=== PATIENT | male | born 1950 | race Caucasian/White ===

== ENCOUNTER → 2019-02-28 | Outpatient (CLI) | payer OTHER, BC ==
--- NOTE | 2019-02-28 16:42 | RAD ---
Left lower extremity venous Doppler ultrasound History: Left leg pain and edema. Comparison: None. Procedure: Color flow Doppler, Doppler spectral analysis, and 2D images are obtained with and without compression in the area of the common femoral vein, superficial femoral vein - femoral vein junction, main femoral vein (superficial femoral vein) and popliteal vein. Veins of the proximal calf are also imaged. Findings: There is normal color flow, augmentation, and compressibility of all visualized left vein segments. No evidence of deep venous thrombus is present. Right common femoral vein is also noted to be patent. IMPRESSION: No evidence of left lower extremity deep venous thrombosis. Electronically signed by: Sebastian Charles MD (02/28/2019 4:39 PM) [id number]
== END | disposition home or self-care (01) ==
LOC: US 15:27
PROVIDERS: ATTEND Physician Assistant
DX: M79.662 Pain in left lower leg (principal); R60.0 Localized edema
CPT/HCPCS: 93971

== ENCOUNTER → 2019-03-21 | Outpatient (CLI) | payer OTHER, BC ==
--- NOTE | 2019-03-21 11:19 | RAD ---
CT of the lumbar spine without comparison for low back pain radiating down the left leg, low back and left hip pain. TECHNIQUE: Contiguous helical 3 mm axial images are obtained through the lumbar spine. Sagittal and coronal reformations are evaluated. No IV contrast was administered. FINDINGS: There is moderate multifocal aortoiliac atherosclerosis. There are paired right renal arteries, there is a single left renal artery. These appear to be patent. Mesenteric vasculature appears to be patent as well. There is straightening of the normal lumbar lordosis. No fracture or acute osseous or alignment abnormalities identified. No bony central canal stenosis is seen at any level. Intervertebral disc spaces appear well maintained at all levels. Small anterior and marginal osteophytes are seen at several levels. At T12-L1, there is no central canal stenosis or neural foraminal narrowing. Moderate facet arthrosis. At L1-2, there is no central canal stenosis or neuroforaminal narrowing. There is moderate facet arthrosis bilaterally. At L2-3, no central canal stenosis or neuroforaminal narrowing, with moderate bilateral facet arthrosis. At L3-4, no significant bony central canal stenosis or neuroforaminal narrowing. There may be mild fusiform disc bulge. There is moderate facet arthrosis with some distortion of the posterior thecal sac. At L4-5, there appears to be a fusiform disc bulge, associated with bulky facet arthrosis and ligamentum flavum hypertrophy resulting in central canal stenosis to some degree. This could be better characterized with MRI. Bony foramina are patent, however due to limited soft tissue evaluation, neuroforaminal soft tissue stenosis cannot be excluded and once again further evaluation with MRI could be of benefit. At L5-S1, there is likely a mild to moderate fusiform disc bulge. There is mild bilateral facet arthrosis. No bony central canal stenosis or bony neural foraminal narrowing. IMPRESSION: 1. Probable moderate fusiform disc bulge associated with bulky facet arthrosis and ligamentum flavum hypertrophy at L4-5 resulting in central canal stenosis. No bony foraminal narrowing, however soft tissue foraminal narrowing may be present as well. These findings could be better clarified with MRI of the lumbar spine. If the patient cannot have an MRI, CT myelography could be of benefit. PQRS Compliance Statement: One or more of the following individualized dose reduction techniques were utilized for this examination: 1. Automated exposure control 2. Adjustment of the mA and/or kV according to patient size 3. Use of iterative reconstruction technique Electronically signed by: Jayro Chicas MD (03/21/2019 11:16 AM) [id number]
== END | disposition home or self-care (01) ==
LOC: CT 08:13
PROVIDERS: ATTEND Nurse Practitioner Family
DX: M51.17 Intervertebral disc disorders with radiculopathy, lumbosacral region (principal); M48.061 Spinal stenosis, lumbar region without neurogenic claudication; I70.0 Atherosclerosis of aorta; M25.78 Osteophyte, vertebrae; M12.88 Other specific arthropathies, not elsewhere classified, other specified site; M62.49 Contracture of muscle, multiple sites
CPT/HCPCS: 72131

== ENCOUNTER → 2021-01-13 | Outpatient (CLI) | payer MEDICARE, BC ==
--- NOTE | 2021-01-13 14:34 | RAD ---
EXAMINATION: CT RIGHT KNEE WITHOUT IV CONTRAST CLINICAL HISTORY: Right knee pain x2 weeks TECHNIQUE: Noncontrast serial axial images obtained through the right knee with sagittal and coronal reconstructions. CT Dose Reduction Employed: One or more of the following individualized dose reduction techniques wer e utilized for this examination: 1. Automated exposure control 2. Adjustment of the mA and/or kV ac cording to patient size 3. Use of iterative reconstruction technique. COMPARISON: None FINDINGS: Minimal degenerative changes in the knee. [id number] degenerative changes in the proximal tibio fibular joint. No acute fracture. Small suprapatellar enthesophyte. No joint effusion. No Doss's cyst. Muscles and tendons unremarkable on limited evaluation. IMPRESSION: No acute osseous abnormality right knee Electronically signed by: aNhun Huang DO (01/13/2021 2:32 PM) [id number]
== END ==
LOC: CT 13:53
PROVIDERS: ATTEND Family Medicine
DX: M25.561 Pain in right knee (principal)
CPT/HCPCS: 73700